=== PATIENT | male | born 1970 | race Caucasian/White ===

== ENCOUNTER 2017-12-08 06:06 | Day surgery (SDC) | payer OTHER ==
[~2017-12-08] VITALS: Ht 172.7 cm; Wt 97.9 kg
[~2017-12-08 06:06] MED LIST: ASPI325; BUTALB-ACETAMI1 EAC2 PO; CITA20 PO; CLOB.05TO; Hydrocodone-Ap1 EA20 PO; MORP30 PO; MORP30ER; Mobic15 MG PO; NAPR500 PO; Pantoprazole So40 MG PO; QUET300; TEMA30 PO; TOPI100 PO; [UNRECOGNIZED DRUG - REMARK]; [UNRECOGNIZED DRUG - REMARK]; [UNRECOGNIZED DRUG - REMARK]; [UNRECOGNIZED DRUG - REMARK]; [UNRECOGNIZED DRUG - REMARK]; [UNRECOGNIZED DRUG - REMARK]
== END 2017-12-08 08:15 | disposition home or self-care (01) ==
LOC: ORSCSDS 06:06
PROVIDERS: Orthopaedic Surgery
PROC: 01N50ZZ Release Median Nerve, Open Approach (ICD-10-PCS; principal; 2017-12-08 07:30)
DX: G56.02 Carpal tunnel syndrome, left upper limb (principal); E78.5 Hyperlipidemia, unspecified; I10 Essential (primary) hypertension; G47.33 Obstructive sleep apnea (adult) (pediatric); F17.210 Nicotine dependence, cigarettes, uncomplicated; Z79.82 Long term (current) use of aspirin; Z79.899 Other long term (current) drug therapy
CPT/HCPCS: J0171; J1885; J2250; J3010; J7120

== ENCOUNTER 2019-12-01 13:21 | Emergency (ER) | payer OTHER ==
[~2019-12-01] VITALS: Ht 172.7 cm; Wt 111.1 kg
== END 2019-12-01 15:28 | disposition home or self-care (01) ==
LOC: ER 13:21
DX: S61.012A Laceration without foreign body of left thumb without damage to nail, initial encounter (principal); F17.210 Nicotine dependence, cigarettes, uncomplicated; Z88.0 Allergy status to penicillin; Z79.899 Other long term (current) drug therapy; W45.8XXA Other foreign body or object entering through skin, initial encounter
CPT/HCPCS: 12002; 99282-25